=== PATIENT | male | born 1995 | race African-American/Black ===

== ENCOUNTER 2017-03-22 17:44 | Emergency (ER) | payer OTHER ==
[~2017-03-22] VITALS: Ht 190.5 cm; Wt 77.3 kg
[2017-03-22 18:11] VITALS: BP 128/68
[2017-03-22] MEDS: KETOROLAC TROMETHAMINE 30 MG/ML VIAL IM ONE ×2 (18:21→18:24)
[2017-03-22] MEDS ORDERED: IBUPROFEN 800 MG TABLET PO ONE (18:30)
== END 2017-03-22 18:45 | disposition home or self-care (01) ==
LOC: EMS 17:46
DX: S39.011A Strain of muscle, fascia and tendon of abdomen, initial encounter (principal); X58.XXXA Exposure to other specified factors, initial encounter; Y93.54 Activity, bowling; Y92.89 Other specified places as the place of occurrence of the external cause; Y99.8 Other external cause status
CPT/HCPCS: 99281; J1885

== ENCOUNTER 2021-06-26 21:39 | Emergency (ER) | payer SELFPAY ==
[~2021-06-26] VITALS: Ht 188 cm; Wt 75.0 kg
[2021-06-26] MEDS ORDERED: TraMADol HCL 50 MG TABLET PO ONE (22:30)
[2021-06-26] MEDS ORDERED: PENICILLIN V POTASSIUM 500 MG TABLET PO ONE (22:30)
[2021-06-26] MEDS ORDERED: PENI500T2 PO (22:42)
[2021-06-26] MEDS ORDERED: IBUP-2070 PO (22:42)
[2021-06-26 22:45] VITALS: BP 141/85
== END 2021-06-26 22:45 | disposition home or self-care (01) ==
LOC: EMS 21:47
DX: K08.89 Other specified disorders of teeth and supporting structures (principal)
CPT/HCPCS: 99283

== ENCOUNTER 2022-10-10 00:58 | Emergency (ER) | payer SELFPAY ==
[~2022-10-10] VITALS: Ht 190.5 cm; Wt 75.0 kg
[~2022-10-10 00:58] MED LIST: IBUP-1492 PO; PENI500T2 PO
[2022-10-10 01:34] LABS: COVID AG,FIA SOURCE NASOPHARYNGEAL
[2022-10-10 02:08] LABS: INFLUENZA TYPE A NEGATIVE FOR TYPE A (NEGATIVE); INFLUENZA TYPE B NEGATIVE FOR TYPE B (NEGATIVE)
[2022-10-10 02:39] VITALS: BP 134/86
== END 2022-10-10 04:27 | disposition home or self-care (01) ==
LOC: EMS 01:00
DX: R05.9 Cough, unspecified (principal); Z20.822 Contact with and (suspected) exposure to COVID-19
CPT/HCPCS: 71046; 87804; 99284